=== PATIENT | female | born 1960 | race Caucasian/White ===

== ENCOUNTER 2022-05-20 14:13 | Outpatient (CLI) | payer OTHER, SELFPAY ==
[2022-05-20 14:44] LABS: SARS-CoV-2 Ag Positive (Negative)
== END 2022-05-20 14:14 | disposition home or self-care (01) ==
LOC: CHSLAB 14:16
PROVIDERS: PCP Internal Medicine; Visit Provider Nurse Practitioner Family
DX: U07.1 COVID-19 (principal); J06.9 Acute upper respiratory infection, unspecified
CPT/HCPCS: 87426; C9803

== ENCOUNTER 2023-05-17 12:11 | Emergency (ER) | payer OTHER, SELFPAY ==
[2023-05-17] VITALS (21 sets, daily range): BP systolic 161–188; BP diastolic 68–117; PULSE 75–123; RESP 12–26; TEMP 36.9; O2SAT 92–98
--- NOTE | 2023-05-17 12:24 | ED.GENADULT ---
HPI - General Adult General Chief complaint: Arrhythmia/Palpitations Stated complaint: chest discomfort Time Seen by Provider: 05/17/23 12:13 History of Present Illness HPI narrative: 62yo woman presents with 1-2 weeks of feeling like she as a UTI, with dysuria, increased frequency and urgency, and left low back pain that is cramping, achey, and intermittent. No fever, but occasionally chilled, and feels palpitations with a heart rate in the 120-130 range. . No nausea or vomiting. Related Data Allergies Allergy/AdvReac Type Severity Reaction Status Date / Time No Known Allergies Allergy Verified 05/17/23 12:18 Review of Systems Review of Systems: All systems reviewed & are unremarkable except as noted in HPI and below Constitutional: Constitutional: Reports chills and Denies fever(s) ENT: Denies dysphagia Cardiovascular: Cardiovascular: Denies chest pain Respiratory: Respiratory: Denies dyspnea Gastrointestinal: Gastrointestinal: Denies abdominal pain Exam Const: General: healthy appearing and no acute distress Nutritional Appearance: well nourished Orientation/consciousness: patient oriented x3 HENMT: Head: normal to inspection Eyes: Conjunctivae: conjunctivae normal Resp: Effort & Inspection: normal respiratory effort and not labored Cardio: Rate: regular rate Rhythm: regular rhythm GI: Inspection: non-distended GI Palp: Yes Soft to palpation and No Tenderness to palpation present (GI) Skin: General skin exam: normal color, no jaundice and no pallor Extrem: General: no clubbing, cyanosis or edema Course Vital Signs Vital signs: Vital Signs Pulse Rate 121 H 05/17/23 12:10 Temperature 36.9 C 05/17/23 12:17 Pulse Rate 122 H 05/17/23 12:17 Respiratory Rate 20 05/17/23 12:17 Blood Pressure 178/117 H 05/17/23 12:17 Pulse Oximetry 98 05/17/23 12:17 Oxygen Delivery Room Air 05/17/23 12:17 Medical Decision Making [facility] Narrative Medical decision making narrative: lower urinary tract symptoms, palpitations, sinus tachycardia DDx likely acute cystitis or other occult infection or viral syndrome, also consider dehydration, renal colic, anxiety. No evidence of myocardial ischemia or other injury. Vital Signs Vital Signs: Vital Signs Pulse Rate 121 H 05/17/23 12:10 Temperature 36.9 C 05/17/23 12:17 Pulse Rate 122 H 05/17/23 12:17 Respiratory Rate 20 05/17/23 12:17 Blood Pressure 178/117 H 05/17/23 12:17 Pulse Oximetry 98 05/17/23 12:17 Oxygen Delivery Room Air 05/17/23 12:17 Discharge Plan Discharge Clinical Impression: Dysuria, Regular sinus tachycardia Patient Disposition: Home, Self-Care Condition: Improved Instructions: Antibiotic Form Additional Instructions: Your symptoms are highly suggestive of a urinary tract infection, though your urinalysis today was quite clear. Complete the prescribed course of antibiotics for the full duration to eliminate any possibility of a persistent bladder infection. As for your heart rate, there was no evidence of any heart illness or injury, fever, or dehydration on your exam or labwork. After IV fluids and Tylenol, however, the heart rate did slow to a normal range. This is further evidence that we should treat with antibiotics despite the urine appearing clear. Prescriptions: New cephalexin 500 mg capsule 500 mg PO TIDWMEAL Qty: 21 0RF Follow-up/Referrals: Dion Cook MD [Primary Care Provider] - Time of Disposition: 14:05
[2023-05-17 12:31] LABS: Basophils Absolute Auto 0.03 K/mm3 (0.00-0.10); Basophils Percent Auto 0.4 % (0.0-1.0); Eosinophils Absolute Auto 0.04 K/mm3 (0.02-0.50); Eosinophils Percent Auto 0.5 % (1.0-6.0); Hematocrit 41.7 % (35.0-49.0); Immature Granulocyte Absolute 0.02 K/mm3 (0.00-0.00); Immature Granulocyte Percent A 0.2 % (0.0-0.0); Lymphocytes Absolute Auto 2.36 K/mm3 (1.10-4.50); Lymphocytes Percent Auto 28.6 % (18.0-42.0); Mean Corpuscular HGB Conc 33.6 g/dL (32.0-36.0); Mean Corpuscular Hemoglobin 29.1 pg (27.0-31.0); Mean Corpuscular Volume 86.7 fL (78.0-102.0); Mean Platelet Volume 9.1 fl (9.2-11.8); Monocytes Absolute Auto 0.67 K/mm3 (0.10-0.90); Monocytes Percent Auto 8.1 % (2.0-11.0); Neutrophils Absolute Auto 5.1 K/mm3 (1.7-7.2); Neutrophils Percent Auto 62.2 % (50.0-70.0); Platelet Count Result 293 K/mm3 (150-420); Red Blood Count 4.81 M/mm3 (4.20-5.40); White Blood Count 8.3 K/mm3 (4.8-10.8)
--- NOTE | 2023-05-17 12:31 | ECG_ITS ---
Measurements Intervals [place] Rate: 106 P: 43 WI: 149 QRS: 5 QRSD: 88 T: 22 QT: 325 QTc: 433 Interpretive Statements SINUS TACHYCARDIA BORDERLINE ECG NO PREVIOUS ECG AVAILABLE FOR COMPARISON Electronically Signed On 05-17-2023 18:17:56 [employer] MACHINE by Lorenzo Nash M.D.
[2023-05-17] MEDS: KETOROLAC 15 MG/ML VIAL (*BKC) IV PUSH (12:36)
[2023-05-17] MEDS: SODIUM CHLORIDE 0.9% IV 1,000 ML 999 ML IV CONT (12:37)
[2023-05-17] MEDS: ACETAMINOPHEN 500 MG TABLET 1000 MG PO (12:37)
--- NOTE | 2023-05-17 12:43 | PC.NURSE ---
IS AT BEDSIDE. PT DENIES ANY NEEDS OR COMPLAINTS. IVF INFUSING ORDERED WITHOUT DIFFICULTY. NAD NOTED. WILL CONTINUE TO MONITOR.
[2023-05-17 12:46] LABS: Alanine Aminotransferase 19 U/L (14-59); Albumin Level 3.2 g/dL (3.4-5.0); Alkaline Phosphatase 92 U/L (46-116); Anion Gap 8 mmol/L (8-16); Aspartate Amino Transferase 15 U/L (15-37); Bilirubin,Total 0.9 mg/dL (0.00-1.00); Blood Urea Nitrogen 11 mg/dL (7-18); Calcium 8.8 mg/dL (8.5-10.1); Carbon Dioxide 28 mmol/L (21-32); Chloride 103 mmol/L (98-108); Estimated Glomerular Filt Rate > 60; Glucose 123 mg/dL (70-99); Osmolality Calculated 288 mOsm/kg (285-295); Potassium 3.7 mmol/L (3.5-5.1); Sodium 139 mmol/L (136-145); Total Protein 7.5 g/dL (6.4-8.2)
[2023-05-17 12:59] LABS: Troponin I 7.9 ng/L (0.00-60.4)
[2023-05-17 13:42] LABS: Appearance Urine Clear (Clear); Bilirubin Urine Negative (Negative); Blood Urine Trace-Intact (Negative); Color Urine Light Yellow (Yellow); Glucose Urine UA Negative (Negative); Ketones Urine Negative (Negative); Leukocyte Esterase Ur Trace LEU/UL (Negative); Nitrate Urine Negative (Negative); Protein Urine Negative (Negative); Urobilinogen Urine 0.2 mg/dL (0.2-1.0)
[2023-05-17 13:44] LABS: Add Urine Microscopic? YES
[2023-05-17 13:45] LABS: Bacteria Urine Trace /hpf; RBC Urine 0-2 /hpf (0-2); Squamous Epithelial Cell Urine Few /hpf (Few); WBC Urine 0-3 /hpf (0-3)
--- NOTE | 2023-05-17 13:54 | PC.NURSE ---
PT IS SITTING ON STRETCHER TALKING WITH AT THIS TIME. PT IS AWAITING ERP DECISION. WILL CONTINUE TO MONITOR.
== END 2023-05-17 14:15 | disposition home or self-care (01) ==
PROVIDERS: Emergency Provider Emergency Medicine; PCP Internal Medicine
DX: R30.0 Dysuria (principal); R00.0 Tachycardia, unspecified
CPT/HCPCS: 36415; 80053; 81001; 84484; 85025; 93005; 96361; 96374; 99284; J1885; J7030

== ENCOUNTER 2023-05-22 23:35 | Emergency (ER) | payer OTHER, SELFPAY ==
[2023-05-22 23:35] VITALS: BP 190/97; PULSE 73; PULSE 80; RESP 18; TEMP 36.6; O2SAT 99
[2023-05-22 23:48] VITALS: PULSE 73; RESP 12; O2SAT 98
[2023-05-23] VITALS: PULSE 75; RESP 16; O2SAT 99
[2023-05-23 00:01] VITALS: BP 180/85; PULSE 76; RESP 19; O2SAT 96
[2023-05-23] MEDS: cloNIDine HCL 0.2 MG TABLET PO (00:05)
[2023-05-23] MEDS: lisinopriL 10 MG TABLET PO (00:07)
[2023-05-23 00:31] VITALS: BP 170/74; PULSE 72; RESP 19; O2SAT 96
[2023-05-23 01:03] VITALS: BP 160/82; PULSE 78; RESP 20; O2SAT 98
--- NOTE | 2023-05-23 01:14 | ED.ARRPALP ---
HPI - Arrhythmia/Palpitations General Chief Complaint: Arrhythmia/Palpitations Stated Complaint: HYPERTENSION Time Seen by Provider: 05/23/23 00:00 History of Present Illness HPI narrative: Patient is a 60-year-old female with significant past medical history presents today for hypertension. Patient had blood pressures as high as 190/100 at home. She states that she feels kind of weird with a blood pressure that high. He has never taken blood pressure medicine in the past before. She has a appointment with her primary care physician this Wednesday. She says that she could not wait because her blood pressure was so high. It was 190/97 when she 1st came into the ER today. Onset (ago): day(s) Duration: constant Severity: mild Associated symptoms: denies other symptoms Related Data Allergies Allergy/AdvReac Type Severity Reaction Status Date / Time No Known Allergies Allergy Verified 05/17/23 12:18 Review of Systems Review of Systems: All systems reviewed & are unremarkable except as noted in HPI and below Constitutional: Constitutional: Reports as per HPI Eyes: Eyes: Reports no additional eye complaints ENT: Reports system reviewed and no additional complaints, except as documented Cardiovascular: Cardiovascular: Reports no additional cardiovascular complaints Respiratory: Respiratory: Reports no additional respiratory complaints Gastrointestinal: Gastrointestinal: Reports no additional gastrointestinal complaints Genitourinary: Genitourinary: Reports no additional female genitourinary complaints Musculoskeletal: Musculoskeletal: Reports no additional musculoskeletal complaints Integumentary/Breasts: Skin/Breast: Reports system reviewed and no additional complaints, except as docu Neurologic: Reports system reviewed and no additional complaints, except as documented Psychiatric: Psychiatric: Reports no additional psychiatric complaints Endocrine: Endocrine: Reports no additional endocrine complaints Hematologic/Lymphatic: Hematologic/Lymphatic: Reports no additional hematologic/lymphatic complaints Allergic/Immunologic: Allergic/Immunologic: Reports no additional allergic/immunologic complaints Exam Const: General: healthy appearing Nutritional Appearance: well nourished Orientation/consciousness: patient oriented x3 HENMT: Head: normal to inspection Ears: external ears normal Face/Nose/Sinus: Normal external nose present Face and sinus: normal facial exam Eyes: Conjunctivae: conjunctivae normal Pupils: Equal, round and reactive pupils present EOM: EOMs intact bilaterally Neck: Neck: normal visual inspection Chest: Chest palpation & inspection: normal inspection of the chest Resp: Effort & Inspection: normal respiratory effort Auscultation: clear to auscultation bilaterally Cardio: Rate: regular rate Rhythm: regular rhythm GI: GI Palp: Yes Soft to palpation Back/Spine/Pelvis: Back: no CVA tenderness Skin: General skin exam: normal color Rashes: no rashes Neuro: General: patient oriented x3 Cranial nerves: Yes Nystagmus not present Extrem: General: normal to inspection Psych: Mental Status: mental status grossly normal Course Vital Signs Vital signs: Vital Signs Temperature 97.8 F 05/22/23 23:35 Pulse Rate 73 05/22/23 23:35 Respiratory Rate 18 05/22/23 23:35 Blood Pressure 190/97 H 05/22/23 23:35 Pulse Oximetry 99 05/22/23 23:35 Oxygen Delivery Room Air 05/22/23 23:35 Temperature 97.8 F 05/22/23 23:35 Pulse Rate 78 05/23/23 01:03 Respiratory Rate 20 05/23/23 01:03 Blood Pressure 160/82 H 05/23/23 01:03 Pulse Oximetry 98 05/23/23 01:03 Oxygen Delivery Room Air 05/23/23 01:03 MDM - Arrhythmia/Palpitations MDM Narrative Medical decision making narrative: low complexity Differential Diagnosis Differential diagnosis: Likely other (hypertension) Medical Records Attestation: I reviewed the patient's medical records. Discharge
[2023-05-23 01:24] VITALS: BP 160/86; BP 168/82; PULSE 82; RESP 18; O2SAT 98
== END 2023-05-23 01:24 | disposition home or self-care (01) ==
PROVIDERS: Emergency Provider Family Medicine; PCP Internal Medicine
DX: I10 Essential (primary) hypertension (principal)
CPT/HCPCS: 99284; A9270

== ENCOUNTER 2023-07-22 09:56 | Outpatient (CLI) | payer OTHER, SELFPAY ==
--- NOTE | 2023-08-24 08:49 | WPDHOLTEREM ---
Holter/Event Monitor Holter/Event Monitor Date of procedure: 07/22/23 Holter/Event Procedure: Event Monitor Indications: Palpitations Conclusion: 1. 18 days event monitor between 07/22/23-08/20/23. There are 25 available transmissions for analysis. 2. Underlying rhythm is sinus rhythm. HR range 50-120 bpm; average 75 bpm. 3. No premature supraventricular complexes. No supraventricular tachycardia. 4. There are occasional premature ventricular complexes with total burden of 1%. No ventricular tachycardia. 5. No significant pauses greater than 2 seconds. 6. Patient reports 24 episodes of symptoms of heart racing, and symptoms other than listed which demonstrate sinus rhythm, HR range 65-111 bpm with 10 episodes with PVC's.
== END 2023-07-22 09:57 | disposition home or self-care (01) ==
LOC: CHSCARD 09:59
PROVIDERS: PCP Internal Medicine; Visit Provider Internal Medicine
DX: R00.2 Palpitations (principal); I10 Essential (primary) hypertension
CPT/HCPCS: 93270

== ENCOUNTER 2023-08-12 12:10 | Outpatient (CLI) | payer OTHER, SELFPAY ==
[2023-08-12 14:02] LABS: Alanine Aminotransferase 27 U/L (14-59); Albumin Level 3.6 g/dL (3.4-5.0); Alkaline Phosphatase 86 U/L (46-116); Anion Gap 7 mmol/L (4-12); Aspartate Amino Transferase 16 U/L (15-37); Bilirubin,Total 0.9 mg/dL (0.00-1.00); Blood Urea Nitrogen 10 mg/dL (7-18); Calcium 9.5 mg/dL (8.5-10.1); Carbon Dioxide 31 mmol/L (21-32); Chloride 101 mmol/L (98-108); Estimated Glomerular Filt Rate > 60; Free T3 2.95 pg/mL (2.18-3.98); Glucose 119 mg/dL (70-99); NT Pro B Type Natriuretic Pept 130 pg/mL (0-125); Osmolality Calculated 288 mOsm/kg (285-295); Potassium 4.2 mmol/L (3.5-5.1); Sodium 139 mmol/L (136-145); Thyroid Stimulating Hormone 1.44 uIU/mL (0.36-3.74); Total Protein 7.3 g/dL (6.4-8.2)
== END 2023-08-12 12:11 | disposition home or self-care (01) ==
LOC: CHSLAB 12:13
PROVIDERS: PCP Internal Medicine; Visit Provider Internal Medicine
DX: R00.2 Palpitations (principal); I10 Essential (primary) hypertension; F41.9 Anxiety disorder, unspecified
CPT/HCPCS: 36415; 80053; 83880; 84439; 84443; 84481

== ENCOUNTER 2023-08-25 09:37 | Outpatient (CLI) | payer OTHER, SELFPAY ==
--- NOTE | 2023-08-27 20:03 | WPDHOMESLEEP ---
Sleep Study - Home Unattended Date of Study: 08/25/23 Ordering Provider: Dion Cook MD Interpreting Provider: Sidra Gonzales MD Home Sleep Study Type: Watch PAT Height: 1.57 m Weight: 77.111 kg Body Mass Index: 31.1 Neck Circumference (inches): 13 [place]: 10 Reason for Sleep Study Increased episodes of nocturia with tachycardia at night Sleep History Eloisa Huitron is a 63-year-old woman who has had nocturia for years. She is usually had awakenings between 3:00 a.m. and 7:00 a.m. to urinate every hour. She attributed it to getting older but in April of 2023 she started to wake in order to urinate but also notice her heart racing between 120 and 140 beats per minute. She was placed on blood pressure medication but continues to have these problems. She rarely awakens from sleep short of breath. She rarely wakes at night with heartburn, belching or coughing.??She rarely snores, never snores loudly enough that others complain. She rarely has trouble sleeping when she has a cold. She never wakes up gasping for breath during the night. She rarely has breathing problems at night. She occasionally sweats excessively at night. She frequently notices her heart pounding or beating irregularly during the night. She occasionally falls asleep during the day. She rarely falls asleep involuntarily, never falls asleep while driving. She never experiences loss of muscle tone with strong emotion. She rarely feels paralyzed on waking or falling asleep. She occasionally experiences vivid dreams upon waking or falling asleep. She recently started feel afraid to go to sleep. She rarely has nightmares. She rarely recalls her dreams. She rarely has thoughts racing through her mind. She rarely feels sad or depressed. She frequently feels anxiety. She occasionally notices parts of her body jerk. She never kicks during the night. She occasionally feels crawling or aching feelings in her legs. She occasionally feels leg pain at night, more so recently. She rarely has morning jaw pain, and never grinds her teeth at night. She occasionally feels bothered by pain during the day, is occasionally awakened by pain during the night. She frequently wakes up feeling stiff in the morning, occasionally wakes feeling sore or achy in the morning. She occasionally awakens with pain in her neck, spine, or joints. She has intentionally lost 10 lb in the last year. She has gastroesophageal reflux which is much better recently. Normal bedtime is 11:00 p.m. to 12 midnight, falling asleep while watching TV, gets in bed about 30 minutes later, waking 5 times at nigh on average to go to the bathroom and get cold water to drink. Sometimes her palpitations cause her to wake at night. She wakes around 6:00 a.m.. On weekends bedtime is later 1:00 a.m. and she wakes at 7:00 a.m.. On average she gets 6 hours of sleep at night. She generally does not take naps in the afternoon or evening but a short nap lasting 10-15 minutes may be refreshing. She feels better in the morning and afternoon compared to later in the day. She noticed that sleeping in a recliner reduced her nighttime tachycardia. Habits:??Tobacco: Never smoker Caffeine: None Alcohol: None Recreational substances: None PMF Past Medical History Medical History (Updated 08/30/23 @ 09:51 by Sidra Gonzales MD) Asthma Hypertension Tachycardia Surgical History Surgical History (Updated 08/30/23 @ 09:52 by Sidra Gonzales MD) S/P tonsillectomy Medications Home Medications Medication Instructions Recorded Confirmed Type cephalexin 500 mg capsule 500 mg PO TIDWMEAL #21 caps 05/17/23 05/22/23 Rx lisinopril 10 mg tablet 10 mg PO DAILY #30 tabs 05/23/23 Rx Medications: Hadn written note includes: Aspirin 81 mg a day Verapamil ER 120 mg a day Magnesium 250 mg daily Vitamin-C Advair 250/50 p.r.n. asthma Albuterol HFA p.r.n. asthma Sleep Proced
[2023-08-30 09:58] VITALS: BMI 31.1
== END 2023-08-26 07:00 | disposition home or self-care (01) ==
LOC: ANHCSM 09:38
PROVIDERS: PCP Internal Medicine; Visit Provider Internal Medicine
DX: G47.30 Sleep apnea, unspecified (principal); G47.10 Hypersomnia, unspecified
CPT/HCPCS: 95800

== ENCOUNTER 2023-09-16 13:34 | Outpatient (CLI) | payer OTHER, SELFPAY ==
--- NOTE | ~2023-09-16 | MM_ITS ---
EXAMINATION: MM screening job BI w josr HISTORY: Screening TECHNIQUE: Craniocaudal and mediolateral oblique 3-D tomosynthesis images were obtained and synthetic 2-D images were generated. CAD analysis was submitted and interpreted. COMPARISON: No prior mammogram is available for comparison at this institution. BREAST PARENCHYMAL COMPOSITION: Not dense: There are scattered areas of fibroglandular density. FINDINGS: There is a small mass in the lower outer quadrant of the right breast anteriorly. The left breast is unremarkable without suspicious mass, calcification or architectural distortion to suggest malignancy. IMPRESSION: 1. Small right breast mass. 2. Additional mammographic views and possible breast ultrasound are recommended. BI-RADS Category 0: Incomplete: Needs additional imaging evaluation. Reviewed, dictated and finalized at location B. IMPRESSION: 1. Small right breast mass. 2. Additional mammographic views and possible breast ultrasound are recommended . BI-RADS Category 0: Incomplete: Needs additional imaging evaluation.
--- NOTE | 2023-09-16 13:44 | ECHO_ITS ---
Patient Info Name: Eloisa Huitron Age: 63 years : 1960 Gender: Female Ht: 62 in Wt: 161 lbs BSA: 1.81 m2 HR: 80 bpm BP: 154 / 81 mmHg Technical Quality: Good Exam Date: 09/16/2023 1:37 PM Exam Location: Echo Lab Patient Status: Outpatient Admit Date: 09/16/2023 Staff Ordering Physician: Leni Babcock N Instrument Assembler: Ari Mejia RDCS Attending Provider: Leni Babcock Referring Physician: Sadiq GRANADOS; Exam Type: CA echo doppler color flow Study Info Indications - palpitations Complete two-dimensional, color flow and Doppler transthoracic echocardiogram is performed. Summary 1. Complete two-dimensional, color flow and Doppler transthoracic echocardiogram is performed. 2. Left ventricular chamber dimension is normal. 3. Left ventricular systolic function is normal, estimated at 50-55%. 4. The left ventricular diastolic function is normal. 5. E/e' 5 is not elevated. 6. Left atrial chamber dimension is mildly enlarged. 7. There is trace mitral valve regurgitation. 8. There is trace tricuspid valve regurgitation. 9. No pulmonary hypertension, estimated pulmonary arterial systolic pressure is 29 mmHg. Left Ventricle E/e' 5 is not elevated. Left ventricular chamber dimension is normal. Left ventricular systolic function is normal, estimated at 50-55%. The left ventricular diastolic function is normal. Right Ventricle Right ventricular systolic function is normal and with normal TAPSE 1.9 cm. Right ventricular chamber dimension is normal. Left Atria Left atrial chamber dimension is mildly enlarged. Right Atria Right atrial chamber dimension is normal. Aortic Valve The aortic valve is trileaflet. There is no aortic valve stenosis. There is no aortic valve regurgitation. Pulmonic Valve There is no pulmonic regurgitation. Mitral Valve There is no mitral valve stenosis. There is trace mitral valve regurgitation. Tricuspid Valve There is trace tricuspid valve regurgitation. No pulmonary hypertension, estimated pulmonary arterial systolic pressure is 29 mmHg. Pericardium/Pleural There is no pericardial effusion. Inferior Vena Cava Normal inferior vena cava with >50% collapse upon inspiration consistent with normal right atrial pressure, 5 mmHg. Aorta The aortic root size at the sinus of Valsalva is normal. Left Ventricular Outflow Tract Name Value Normal LVOT 2D LVOT Diameter 2.1 cm LVOT Doppler LVOT Peak Velocity 96 cm/s LVOT Peak Gradient 4 mmHg LVOT Mean Gradient 2 mmHg LVOT VTI 21 cm LVOT VTI/AV VTI Ratio 0.7 LVOT Stroke Volume 70 ml Pulmonic Valve Name Value Normal PV Doppler PV Peak Velocity 98 cm/s PV Peak Gradient 4 mmHg Mitral Valve
== END 2023-09-16 13:35 | disposition home or self-care (01) ==
LOC: CHSIMG 13:36
PROVIDERS: PCP Internal Medicine
DX: Z12.31 Encounter for screening mammogram for malignant neoplasm of breast (principal); R00.2 Palpitations; R93.1 Abnormal findings on diagnostic imaging of heart and coronary circulation; R92.8 Other abnormal and inconclusive findings on diagnostic imaging of breast
CPT/HCPCS: 77063; 77067; 93306

== ENCOUNTER 2023-09-24 08:36 | Outpatient (CLI) | payer OTHER, SELFPAY ==
--- NOTE | ~2023-09-24 | MMUS_ITS ---
EXAMINATION: MM diagnostic job RT w josr, US breast RT limited HISTORY: Right breast mass TECHNIQUE: Additional 3-D tomosynthesis spot compression images of the right breast were performed an d synthetic 2-D images were generated. CAD analysis was submitted and interpreted. High resolution li mited right breast ultrasound was performed. COMPARISON: 09/16/2023 FINDINGS: MAMMOGRAPHIC FINDINGS: There are scattered areas of fibroglandular density. Spot compression views demonstrate a persistent 4 mm dense ovoid mass at the upper, outer right breas t. There is also probable small benign lymph node of the more posterior upper, outer right breast. No suspicious microcalcifications. ULTRASOUND: At the 8:00 position right breast, 4 cm from the nipple, there is a 4 x 4 by 3 mm markedly hypoechoic mass with posterior shadowing and irregular borders. Lesion is taller than wide. At the 10:00 position right breast, 6 cm from the nipple, there is a 4 mm reniform benign lymph node with fatty hilum. IMPRESSION: 4 mm suspicious mass at the 8:00 position right breast, 4 cm from nipple, as detailed above. Ultraso und-guided biopsy is recommended. BI-RADS category 5, highly suggestive of malignancy. Reviewed, dictated and finalized at location M. IMPRESSION: 4 mm suspicious mass at the 8:00 position right breast, 4 cm from nipple, as d etailed above. Ultrasound-guided biopsy is recommended. BI-RADS category 5, highly suggestive of malignancy.
== END 2023-09-24 08:37 | disposition home or self-care (01) ==
LOC: CHSIMG 08:41
PROVIDERS: PCP Internal Medicine
DX: N63.13 Unspecified lump in the right breast, lower outer quadrant (principal); R92.8 Other abnormal and inconclusive findings on diagnostic imaging of breast
CPT/HCPCS: 76642; 77061; 77065; G0279

== ENCOUNTER 2024-04-08 19:43 | Outpatient (CLI) | payer OTHER, SELFPAY ==
--- NOTE | 2024-04-21 19:13 | P.SLEEP_ITS ---
Sleep Study Date of Study: 04/08/24 Ordering Provider: Dion Cook MD Interpreting Physician: Sidra Gonzales MD Sleep Study Type: Polysomnogram Height: 1.52 m Weight: 77.111 kg Body Mass Index: 33.2 Neck Circumference (inches): 13 [place]: 16 Reason for Sleep Study Hypersomnolence * 08/25/2023 home sleep test using WatchPat was negative for sleep disordered breathing, apnea-hypopnea index is 2.3, lowest saturation 88; she returns for additional testing Sleep History Eloisa Huitron is a 63-year-old woman who had a home sleep test July 2023 for hypersomnolence and nocturia for years. Her sleep questionnaire from 2023 was used for this sleep history. She is usually has awakenings between 3:00 a.m. and 7:00 a.m. to urinate every hour. She attributed it to getting older but in April of 2023 she started to wake in order to urinate but also notice her heart racing between 120 and 140 beats per minute. She was placed on blood pressure medication but continues to have these problems. She rarely awakens f rom sleep short of breath. She rarely wakes at night with heartburn, belching or coughing.??She rarely snores, never snores loudly enough that others complain. She rarely has trouble sleeping when she has a cold. She never wakes up gasping for breath during the night. She rarely has breathing problems at night. She occasionally sweats excessively at night. She frequently notices her heart pounding or beating irregularly during the night. She occasionally falls asleep during the day. She rarely falls asleep involuntarily, never falls asleep while driving. She never experiences loss of muscle tone with strong emotion. She rarely feels paralyzed on waking or falling asleep. She occasionally experiences vivid dreams upon waking or falling asleep. She recently started feel afraid to go to sleep. She rarely has nightmares. She rarely recalls her dreams. She rarely has thoughts racing through her mind. She rarely feels sad or depressed. She frequently feels anxiety. She occasionally notices parts of her body jerk. She never kicks during the night. She occasionally feels crawling or aching feelings in her legs. She occasionally feels leg pain at night, more so recently. She rarely has morning jaw pain, and never grinds her teeth at night. She occasionally feels bothered by pain during the day, is occasionally awakened by pain during the night. She frequently wakes up feeling stiff in the morning, occasionally wakes feeling sore or achy in the morning. She occasionally awakens with pain in her neck, spine, or joints. She has intentionally lost 10 lb in the last year. She has gastroesophageal reflux which is much better recently. Normal bedtime is 11:00 p.m. to 12 midnight, falling asleep while watching TV, gets in bed about 30 minutes later, waking 5 times at nigh on average to go to the bathroom and get cold water to drink. Sometimes her palpitations cause her to wake at night. She wakes around 6:00 a.m.. On weekends bedtime is later 1:00 a.m. and she wakes at 7:00 a.m.. On average she gets 6 hours of sleep at night. She generally does not take naps in the afternoon or evening but a short nap lasting 10-15 minutes may be refreshing. She feels better in the morning and afternoon compared to later in the day. She noticed that sleeping in a recliner reduced her nighttime tachycardia. Habits:??Tobacco: Never smoker Caffeine: None Alcohol: None Recreational substances: None PMFSH Past Medical History Medical History (Updated 05/20/24 @ 15:28 by Sidra Gonzales MD) Tachycardia Asthma Hypertension Surgical History Surgical History (Updated 08/30/23 @ 09:52 by Sidra Gonzales MD) S/P tonsillectomy Medications Home Medications ?Medication ?Instructions ?Recorded ?Confirmed ?Type cephalexin 500 mg capsule 500 mg PO TIDWMEAL #21 caps 05/17/23 05/22/23 Rx lisinopril 10 mg tablet 10 mg PO DAILY #30 tabs 05/23/23 Rx Sleep Procedure A full night polysomnogram using the TeamSupport multi-channel system recorded the standard physiologic parameters including EEG, EOG, submentalis EMG, anterior tibialis EMG, EKG, body position, nasal and oral airflow using nasal pressure sensor and thermistor. Respiratory parameters of chest and abdominal movements were recorded with Respiratory Inductance Plethysmography belts. Oxygen saturation was recorded by pulse oximetry. Video monitoring was also performed. Sleep stages, periodic limb movements, and EEG arousals were scored in 30 second epochs according to the criteria of the AASM Scoring Manual. The Apnea-Hypopnea Index was calculated using CMS guidelines for definition of hypopnea while scoring respiratory events. Sleep Architecture The total recording time was 427.7 minutes. The total sleep time was 234.5 minutes. Sleep latency was 37.5 minutes. REM latency was 97.0 minutes. Sleep efficiency was 54.8%. The patient had 18 awakenings for an awakening index of 4.6. Wake after sleep onset time was 156.0 minutes. The patient spent 22.0 minutes, 9.4% of total sleep time in Stage N1. The patient spent 95.0 minutes, 40.5% in Stage N2. The patient spent 79.5 minutes, 33.9% in Stage N3. The patient spent 38.0 minutes, 16.2% in Stage REM sleep. Respiratory Analysis The patient had 1 hypopnea, no obstructive apneas, no mixed apneas, and 2 central apneas for an overall Apnea Hypopnea Index of 0.8. The REM Apnea Hypopnea Index was 4.7. The NREM Apnea Hypopnea Index was 0.3. The patient had a Central Apnea Hypopnea Index of 0.5. There were no- Respiratory Effort Related Arousals/. The Respiratory Disturbance Index is 1.0 events per hour. There was no evidence of Mark-Yip Respirations. Arousals There were 101 total arousals for an arousal index of 25.8. There were 21 spontaneous arousals for an index of 5.4. There were 5 arousals due to respiratory events for an index of 1.3. There were 71 arousals due to periodic limb movements for an index of 18.2. There were 5 arousals due to isolated limb movements for an index of 1.3. Periodic Limb Movements The patient had 17 isolated limb movements with an index of 4.3. The patient had 236 periodic limb movements with an index of 60.4. Patient had a total of 253 limb movements with a total limb movement index of 64.7. Oximetry Data The patient had an average oxygen saturation of 94.4% in sleep with a minimum oxygen saturation of 87% and a maximum oxygen saturation of 98%. The patient had 3 oxygen desaturations that were 4% or greater resulting in an Oxygen Desaturation Index of 0.8. The patient spent 0.2 minutes, 0% of total sleep time with an oxygen saturation below 88%. Snoring Profile Snoring was not noted. Cardiac Profile The EKG showed normal sinus rhythm. the patient had an average pulse rate of 57.9 bpm with a minimum pulse of rate of 47 bpm and a maximum pulse rate of 97 bpm. No arrhythmias noted. EEG Profile Unremarkable, no evidence of seizures. Assessment and Plan Assessment and Plan (1) PLMD (periodic limb movement disorder): Code(s): G47.61 - Periodic limb movement disorder Status: Acute Assessment and Plan: This full night nocturnal polysomnogram on 04/08/2024 shows no sleep disordered breathing. She has increased periodic limb movements, periodic limb movement index is 60.4, and an increased periodic limb movement arousal index 18.2. This is above normal and may contribute to daytime dysfunction due to frequent arousals during sleep. Her sleep history includes occasional crawling feelings and night time leg pain. Ferritin level is indicated to exclude iron deficiency anemia as a contributing factor. Ferritin should be 75 ng/mL or greater. If ferritin is below this, iron supplementation should be given to achieve ferritin of 75 ng/mL. There are nonpharmacologic methods to treat limb movements including daily exercise, stretching calf muscles before bed, avoiding excessive amounts of caffeine and alcohol, vitamin B supplementation, magnesium lotion massaged into legs before bed, and use of a weighted blanket. Pharmacologic therapy is very effective for restless legs syndrome and limb movements during sleep and may include [id number] voltage-gated calcium channel ligands such as gabapentin which is preferable to dopaminergic agents which can have augmentation. Other treatments can include opioids and benzodiazepines. Data The data obtained during this sleep study is adequate for interpretation. Certification This sleep study has been reviewed by a board certified sleep medicine physician.
[2024-05-20 15:38] VITALS: BMI 33.2
== END 2024-04-09 06:38 | disposition home or self-care (01) ==
PROVIDERS: PCP Internal Medicine; Visit Provider Internal Medicine
DX: G47.33 Obstructive sleep apnea (adult) (pediatric) (principal); G47.61 Periodic limb movement disorder
CPT/HCPCS: 95810

== ENCOUNTER 2024-08-25 10:57 | Outpatient (CLI) | payer OTHER, SELFPAY ==
[2024-08-25 11:10] LABS: Basophils Absolute Auto 0.04 K/mm3 (0.00-0.10); Basophils Percent Auto 0.7 % (0.0-1.0); Eosinophils Absolute Auto 0.13 K/mm3 (0.02-0.50); Eosinophils Percent Auto 2.3 % (1.0-6.0); Hematocrit 43.1 % (35.0-49.0); Immature Granulocyte Absolute 0.01 K/mm3 (0.00-0.00); Immature Granulocyte Percent A 0.2 % (0.0-0.0); Lymphocytes Percent Auto 42.9 % (18.0-42.0); Mean Corpuscular HGB Conc 32.5 g/dL (32-36); Mean Corpuscular Hemoglobin 29.4 pg (27.0-31.0); Mean Corpuscular Volume 90.5 fL (78.0-102.0); Mean Platelet Volume 9.5 fl (9.2-11.8); Monocytes Absolute Auto 0.51 K/mm3 (0.10-0.90); Monocytes Percent Auto 9.1 % (2.0-11.0); Neutrophils Percent Auto 44.8 % (50.0-70.0); Platelet Count Result 307 K/mm3 (150-420); Red Blood Count 4.76 M/mm3 (4.20-5.40); Red Cell Distribution Width 12.6 % (11.6-14.4); White Blood Count 5.6 K/mm3 (4.8-10.8)
--- OUTSIDE RECORDS SUMMARY | 2024-08-25 11:10 | XMS_ITS | Clinical Summary ---
Author Organization [facility] Medical Office Building [address] [place] [id number] Care Team Providers Care Commercial Airplane Pilot Name Role Phone Dion Cook MD Primary Care Provider [phone] Deniz Bray MD Unavailable [phone] Dejan Mendez MD Unavailable [phone] Ino Jimenez MD PhD Unavailable Allergies Active Allergy Reactions Criticality Noted Date Comments Latex Swelling Medium 10/15/2023 Medications magnesium oxide (MAG-OX) 250 mg (150.8 mg elemental) tablet Take 1 tablet (250 mg total) by mouth nightly at bedtime. 4 Active coenzyme Q10 10 mg capsule Take 1 capsule (10 mg total) by mouth daily Active polyethylene glycol (MIRALAX) 17 gram/dose bulk powder Take 17 g by mouth nightly Active albuterol HFA (PROVENTIL HFA,VENTOLIN HFA,PROAIR HFA) 90 mcg/actuation inhaler Inhale 2 puffs every 6 (six) hours as needed for wheezing Active fluticasone propion-salmete roL (ADVAIR DISKUS) 100-50 mcg/dose diskus inhaler Inhale 1 puff 2 (two) times a day as needed Rinse mouth with water after use. Do not swallow. Active traMADoL (ULTRAM) 50 mg tablet Take 1 tablet (50 mg total) by mouth every 4 (four) hours as needed for pain 10 tablet 4 Active Additional Information Patient not taking.Reported on 01/10/2024 propranoloL (INDERAL) 80 mg tablet Take 1 tablet (80 mg total) by mouth nightly Active traMADoL (ULTRAM) 50 mg tablet Take 1 tablet (50 mg total) by mouth every 4 (four) hours as needed for pain 10 tablet 4 Active Additional Information Patient not taking.Reported on 01/10/2024 Active Problems Problem Noted Date Diagnosed Date Personal history of radiation therapy 03/08/2024 Malignant neoplasm of lower- outer quadrant of right breast of female, estrogen receptor positive 10/28/2023 Cancer Staging:Clinical stage from 10/28/2023:Stage IA(cT1a, cN0, cM0, G1, ER+, NC+, HER2-) - Signed by Dejan Mendez MD on 10/28/2023 Pathologic stage from 01/10/2024:Stage IA(pT1b, pN0(sn), cM0, G1, ER+, NC+, HER2-) - Signed by Dejan Mendez MD on 01/10/2024 Surgical History Surgery Date Site/Laterality Comments BREAST BIOPSY 10/15/2023 Right TONSILLECTOMY Medical History Medical History Date Comments Breast cancer (HCC) History of tachycardia no episod es recently Hypertension Bladder prolapse, female, acquired Asthma Pneumonia Family History Medical History Relation Name Comments No Known Problems Father Breast cancer Father's Sister Cancer Father's Sister No Known Problems Mother Relation Name Status Comments Father Father's Sister Maternal Grandfather Maternal Grandmother Mother Alive Paternal Grandfather Paternal Grandmother Social History Tobacco Use Types Packs/Day Years Used Date Smoking Tobacco: Never Smokeless Tobacco: Never Tobacco Cessation:Counseling Given: Not Answered AUDIT-C Answer Date Recorded Q1: How often do you have a drink containing alcohol? Never 12/15/2023 Q2: How many drinks containi ng alcohol do you have on a typical day when you are drinking? Patient does not drink Q3: How often do you have si x or more drinks on one occasion? Never 12/15/2023 Personal Safety Answer Date Recorded Have you ever been in or are you currently in a harmful physical or emotional relationship or is someone making you feel afraid or unsafe? Denies 12/15/2023 Comments No Sex and Gender Information Value Date Recorded Sex Assigned at Not on file Legal Sex Female 10:17 AM CDT Gender Identity Not on file Sexual Orientation Not on file Obstetrics History Last Filed Vital Signs Vital Sign Reading Time Taken Comments Blood Pressure 158/92 03/15/2024 1:21 PM DIGITAL SALES REPRESENTATIVE Pulse 59 03/15/2024 1:21 PM DIGITAL SALES REPRESENTATIVE Temperature 36.1 C (97 F) 12/15/2023 9:00 AM CDT Respiratory Rate 18 12/15/2023 9:30 AM CDT Oxygen Saturation 100% 03/15/2024 1:21 PM DIGITAL SALES REPRESENTATIVE Inhaled Oxygen Concentration - - Weight 75.3 kg (166 lb) 03/15/2024 1:21 PM DIGITAL SALES REPRESENTATIVE Height 151.1 cm (4' 11.5) 12/15/2023 6:10 AM CD T Body Mass Index 32.97 12/15/2023 6:10 AM CDT Plan of Treatment Health Maintenance Due Date Last Done Comments Cervical Cancer Screening 1960 Colon Cancer Screening-Colonoscopy 1960 Depression Screening 1960 Hepatitis C Screening 1960 DTaP/Tdap/Td Vaccine (1 - Tdap) 1971 Hepatitis B Screening 1978 Regular Well Visit/Exam 18-64 1978 Pneumococcal vaccine <65 (1 of 2 - PCV) 1979 Zoster Vaccine (1 of 2) 1979 Breast Cancer Screening-Mammogram 09/16/2024 024 Influenza Vaccine (Season Ended) 2024 Medical Devices Implanted Type Area Molding Utility Worker Device Identifier Shelf Expiration Date Model / Serial / Lot [employer] Limited Partnership Marker Biospy Site Top Hat Shape Senomark [id number] - [id number] Implanted:Qty: 1 on 10/15/2023 by Deniz Bray MD at [facility] Right: Breast Hologic Limited Partnership [id number] 07/05/2024 SMARK-GENEVIEVE ERO-2S / / [id number] Insurance [employer] [place] 20ga 5cm Reposition J Curve Wire Centimeter Phil Stabilizer [id number] - [id number] Implanted:Qty: 1 on 11/15/2023 by Pradeep Vazquez MD at [facility] Right: Breast [employer] [id number] 08/04/2028 [id number] / / [id number] Insurance [facility] Advance Directives For more information, please contact: [phone] * Full Code (Latest Code Status on File) Date Activated Date Inactivated Comments 12/15/2023 8:17 AM 12/15/2023 1:56 PM * Full Code Date Activated Date Inactivated Comments 11/15/2023 2:10 PM 11/15/2023 7:46 PM Care Teams Commercial Airplane Pilot Relationship Specialty Start Date End Date Dion Cook MD PCP - General Internal Medicine 10/08/23 Deniz Bray MD [address] [facility] [address] [place] [address] Surgeon General Surgery 10/21/23 Dejan Mendez MD [address] [facility] [address] [place] [address] Radiation Oncologist Radiation Oncology 10/21/23 Ino Jimenez MD PhD [address] [facility] [address] [place] [address] Medical Oncologist/Substance Abuse Clinician Medical Oncology 10/28/23
--- OUTSIDE RECORDS SUMMARY | 2024-08-25 11:10 | XMS_ITS | Referral Summary ---
Author Organization [facility] Medical Office Building [address] [place] [id number] Care Team Providers Care Glass Forming Engineer Name Role Phone Dion Cook MD Primary Care Provider [phone] Deniz Bray MD Unavailable [phone] Dejan Mendez MD Unavailable [phone] Ino Jimenez MD PhD Unavailable Allergies [...] hours as needed for pain 10 tablet Active Additional Information Patient not taking.Reported on 01/10/2024 Active Problems Problem Noted Date Diagnosed Date Personal history of radiation therapy 03/08/2024 Malignant neoplasm of lower- outer quadrant of right breast of female, estrogen receptor positive 10/28/2023 Cancer Staging:Clinical stage from 10/28/2023:Stage IA(cT1a, cN0, cM0, G1, ER+, OR+, HER2-) - Signed by Dejan Mendez MD on 10/28/2023 Pathologic stage from 01/10/2024:Stage IA(pT1b, pN0(sn), cM0, G1, ER+, OR+, HER2-) - Signed by Dejan Mendez MD on 01/10/2024 Social History Tobacco Use Types Packs/Day Years [...] on file Sexual Orientation Not on file Last Filed Vital Signs Vital Sign Reading Time Taken Comments Blood Pressure 158/92 03/15/2024 1:21 PM MIXER LEVER OPERATOR Pulse 59 03/15/2024 1:21 PM MIXER LEVER OPERATOR Temperature 36.1 C (97 F) 12/15/2023 9:00 AM CDT Respiratory Rate 18 12/15/2023 9:30 AM CDT Oxygen Saturation 100% 03/15/2024 1:21 PM MIXER LEVER OPERATOR Inhaled Oxygen Concentration - - Weight 75.3 kg (166 lb) 03/15/2024 1:21 PM MIXER LEVER OPERATOR Height 151.1 cm (4' 11.5) 12/15/2023 6:10 AM CD T Body Mass Index 32.97 12/15/2023 6:10 AM CDT Plan of Treatment Not on file Medical Devices Implanted Type Area Fabrication Engineer Device Identifier Shelf Expiration Date Model / Serial / Lot Hologic Limited Partnership Marker Biospy Site Top Hat Shape Senomark [id number] - [id number] Implanted:Qty: 1 on 10/15/2023 by Deniz Bray MD at [facility] Right: Breast [employer] Partnership [id number] 07/05/2024 SMARK-GENEVIEVE ERO-2S / / [id number] [id number] Team Lead [employer] [place] 20ga 5cm Reposition J Curve Wire Centimeter Phil Stabilizer [id number] - [id number] Implanted:Qty: 1 on 11/15/2023 by Pradeep Vazquez MD at [facility] Right: Breast [employer] [id number] 08/04/2028 [id number] / / [id number] Insurance [facility] Advance Directives For more information, please contact: [phone] * Full Code (Latest Code Status on File) Date Activated Date Inactivated Comments 12/15/2023 8:17 AM 12/15/2023 1:56 PM * Full Code Date Activated Date Inactivated Comments 11/15/2023 2:10 PM 11/15/2023 7:46 PM Care Teams Glass Forming Engineer Relationship Specialty Start Date End Date Dion Cook MD PCP - General Internal Medicine 10/08/23 Deniz Bray MD [facility] [address] [place] [address] Surgeon General Surgery 10/21/23 Dejan Mendez MD [address] [place] [address] [address] [place], [place] [id number] Radiation Oncologist Radiation Oncology 10/21/23 Ino Jimenez MD PhD [address] [facility] [address] [place] [address] Medical Oncologist/Bakery Worker Conveyor Line Medical Oncology 10/28/23
--- OUTSIDE RECORDS SUMMARY | 2024-08-25 11:10 | XMS_ITS | Data Portability ---
Author Organization [facility] Address [address] [place] [address] Care Team Providers Care University Librarian Name Role Phone MARINA SPENCER Primary Care Provider LENI BABCOCK Dining Room Host Unavailable Assessment No assessment recorded. Plan of Treatment Reminders Order Date Submit Date Provider Last Modified By Organization Details Last Modified Time Details Appointments None record ed. Lab bacter ial vagino sis panel, vagina l 2023 [facility], [address] [place] [address] 2, [place], [address], 4 17:09:25 cytolo gy report , thin prep, smear or scrapi ng, cervic al or vagina l 2023 [facility], [address] [place] [address] 2, [place], [address], 4 10:22:54 noninv asive colore ctal cancer DNA + occult blood screen ing, QL, stool 2023 [facility] Orders Only), [address], [address], [place], [address], 4 18:18:30 Referral breast surger y referr al - mammog wild done showed small right breast massAd dition al imagin g ordere d Additi onal imagin g was done on and it showed at 8:00 in the right breast , 4cm from the nipple a 4x4x3m m hypoec hoic mass with dimpling machine operator ior shadow ing and irregu lar border s. Lesion is taller than wider. Suspic ious for malign cassandra. Biopsy is needed . 2023 [facility], [address], [address], [place], [address], 4 11:42:58 gastro entero logist referr al - Cologu jeff done - result s are positi veWill refer to GI for colono scopy 2023 [facility], [address] [facility], [address], [place], [address], 4 17:07:49 urogyn ecolog ist referr al - Slight Cystoc anali noted upon examur inary incont inence at timesP t also has urinar y urgenc y as well. 2023 [facility], [address] [facility], [address], [place], [address], 4 16:01:35 Procedures None record ed. Surgeries None record ed. Imaging US, breast , unilat eral - mammog wild done showed small right breast mass, Mass is in lower outer quadra nt [address] [facility], [address] [place], [address], 4 15:42:52 MAMMO, diagno stic, unilat eral - mammog wild done showed small right breast mass, Mass is in lower outer quadra nt [address] [facility], [address] [place], [address], 4 15:42:52 MAMMO, screen ing, bilate ral [address] [facility] [address] [facility], [place], [address], 11:09:29 Medication Orders None record ed. Patient TargetsNo targets recorded. Patient Instructions Encounter Date Encounter Id Patient Instructions Last Modified By Organization Details Last Modified Time 09/06/2023 [id number] A healthy lifestyle: care instructions Not available 09/06/2023 10:58:33 Your women's health annual exam today was unremarkable. Continue to practice breast self awareness like we discussed. Come back to the office with any breast changes, nipple discharge, change to your menstrual cycle, or with complaints of unusual odorous discharge. Otherwise, come back in 1 year for your next well woman annual exam. Do NOT douche as it disturbs the natural balance of bacteria in the vagina and can cause infection. Avoid scented soaps or lotions. Use a basic unscented soap for only the outer skin around your vagina. Wear cotton underwear, avoid thongs, avoid spandex, leggings and wear panty liners daily. You can try probiotics. Use a condom with EVERY sexual encounter to minimize your risk for sexually transmitted infection and unplanned . 1. Start taking a multivitamin, calcium and vitamin D3 supplements daily to keep your bones healthy. 2. Exercise and keep a healthy diet to minimize risk for stroke, heart attack and osteoporosis. 3. Use a once a day vaginal moisturizer (like Replens) if you have bothersome dryness. If dryness continues to be a problem, make an appointment to see us to discuss other options. Keep taking your multivitamins. Your bones get weaker after menopause, and you need to take your calcium and vitamin D3, which are multivitamins, to make sure your bones stay strong. Regular exercise, like walking, is very good to keep bones healthy. Try exercising for 30 minutes 5 times a week. Try having 2-3 servings of low fat dairy every day. Lubrication can help make penetrative intercourse more comfortable. There are 3 types of lube: Water-based (examples are KY jelly, Astroglide): inexpensive, can buy over the counter, often gets sticky and needs to be reapplied. Oil-based (examples olive oil, coconut oil): inexpensive, can stain sheets, do not use with condoms. Silicone-based (examples Uber Lube, Pjur): more expensive, a little goes a long way, does not have scents or stain sheets. Not available 09/06/2023 10:25:06 09/17/2023 [id number] A healthy lifestyle: care instructions [email or web address] Not available 09/17/2023 13:13:03 Your referral wa s ordered today. It will be processed by our health and safety coordinator. Once it is processed, you should be able to make your appointment. [email or web address] Not available 09/17/2023 13:13:02 09/27/2023 [id number] A healthy lifestyle: care instructions [email or web address] Not available 09/27/2023 12:45:08 Your referral wa s ordered today. It will be processed by our health and safety coordinator. Once it is processed, you should be able to make your appointment. [email or web address] Not available 09/27/2023 12:45:07 Reason for Referral Urogynecologist Referral for Cystocele Slight Cystocele noted upon examurinary incontinence at timesPt also has urinary urgency as well. Referring Physician: Leni Babcock [employer] WOMAN, Encounter Date: 09/06/2023 Skip Load Driver Referral for Screening for malignant neoplasm of colon Cologuard done - results are positiveWill refer to GI for colonoscopy Referring Physician: Leni Babcock [employer] WOMAN, Encounter Date: 09/17/2023 Breast Surgery Referral for Mass of right breast mammogram done 09/16/2023 showed small right breast massAdditional imaging ordered Additional imaging was done on 09/24/2023 and it showed at 8:00 in the right breast, 4cm from the nipple a [id number] hypoechoic mass with posterior shadowing and irregular borders. Lesion is taller than wider. Suspicious for malignancy. Biopsy is needed. Referring Physician: Leni Babcock [employer] WOMAN, Encounter Date: 09/27/2023 Results Created Date Observation Date Name Description Value Unit Range Abnormal Flag Note LastModifiedBy Organization Detail LastModifiedTime 09/06/19 24 09/07/2023 NUSWA B BV AND JALEN DA, DONAVAN atopobium vaginae LOW - 0 score Not Available [facility] ([facility]) [address] [place], [address], 09/07/2023 17:09:25 09/06/19 24 09/07/2023 NUSWA B BV AND JALNE DA, DONAVAN bvab 2 LOW - 0 score Not Available [facility] ([facility]) [address] [facility], [place], [address], 09/07/2023 17:09:25 09/06/19 24 09/07/2023 NUSWA B BV AND JALEN DA, DONAVAN megasphaera 1 LOW - 0 score Calcu late total score by rigo ellis the 3 indiv idual bacte rial vagin osis (BV) marke r score s toget her. Total score is inter prete d as follo ws: Total score 0-1: Indic ates the absen ce of BV. Total score 2: Indet ermin ate for BV. Addit ional clini will data shoul d be evalu ated to estab rodrigo a diagn osis. Total score 3-6: Indic ates the prese nce of BV. Not Available [facility] ([facility]) [address] [facility], [place], [address], 09/07/2023 17:09:25 09/06/19 24 09/07/2023 NUSWA B BV AND JALEN DA, DONAVAN gaye albicans, DONAVAN NEGATI VE negati ve Not Available [facility] ([facility]) [address] [place], [address], 09/07/2023 17:09:25 09/06/19 24 09/07/2023 NUSWA B BV AND JALEN DA, DONAVAN gaye glabrata, DONAVAN NEGATI VE negati ve Not Available [facility] ([facility]) [address] [place], [address], 09/07/2023 17:09:25 09/06/19 24 09/07/2023 IGP, APTIM A HPV, RFX 16/18 ,45 HPV aptima NEGATI VE negati ve This nucle ic acid ampli ficat ion test detec ts fourt een high- risk HPV types (16,1 8,31, 33,35 ,39,4 5,51, 52,56 ,58,5 9,66, 68) witho ut diffe renti ation . Not Available [facility] ([facility]) [address] [facility], [place], [address], 09/09/2023 10:22:54 09/06/19 24 09/09/2023 IGP, APTIM A HPV, RFX 16/18 ,45 diagnosis: COMMEN T NEGAT CODY FOR INTRA EPITH ELIAL LESIO N OR INDIRA RINALDI . THIS SPECI MEN WAS RESCR EENED PART OF OUR QUALI TY CONTR OL PROGR AM. Not Available [facility] ([facility]) [address] [facility], [place], [address], 09/09/2023 10:22:54 09/06/19 24 09/09/2023 IGP, APTIM A HPV, RFX 16/18 ,45 specimen adequacy: COMMEN T Satis facto ry for evalu ation . Endoc ervic al and/o r squam ous metap lasti c cells (endo cervi will compo nent) are prese nt. Not Available [facility] ([facility]) [address] [facility], [place], [address], 09/09/2023 10:22:54 09/06/19 24 09/09/2023 IGP, APTIM A HPV, RFX 16/18 ,45 clinician provided ICD10: COMMEN T Z01.4 19 N89.8 Not Available [facility] ([facility]) [address] [place], [address], 09/09/2023 10:22:54 09/06/19 24 09/09/2023 IGP, APTIM A HPV, RFX 16/18 ,45 performed by: COMMEN T Loretta sa W Gilke rson, Cytot echno logis t (ASCP ) Not Available [facility] ([facility]) [address] [place], [address], 09/09/2023 10:22:54 09/06/19 24 09/09/2023 IGP, APTIM A HPV, RFX 16/18 ,45 QC reviewed by: KAREN mattson, Cytot echno logis t (ASCP ) Not Available [facility] ([facility]) [address] [place], [address], 09/09/2023 10:22:54 09/06/19 24 09/09/2023 IGP, APTIM A HPV, RFX 16/18 ,45 . . Not Available [facility] ([facility]) [address] [place], [address], 09/09/2023 10:22:54 09/06/19 24 09/09/2023 IGP, APTIM A HPV, RFX 16/18 ,45 note: KAREN Tran The Pap smear is a scree angelica test zara blair to aid in the detec tion of huber ligna nt and malig nant condi tions of the uteri ne cervi x. It is not a diagn ostic proce dure and shoul d not be used as the sole means of detec ting cervi will cance r. Both false -posi tive and false -nega tive repor ts do occur . Not Available [facility] ([facility]) [address] [place], [address], 09/09/2023 10:22:54 09/06/1909/09/2023 IGP, APTIM A HPV, RFX 16/18 ,45 test methodology: KAREN Tran This liqui d based ThinP rep(R ) pap test was scree blair with the use of an image guide dorota systefren m. Not Available [facility] ([facility]) [address] [place], [address], 09/09/2023 10:22:54 09/06/19 24 09/09/2023 IGP, APTIM A HPV, RFX 16/18 ,45 HPV genotype reflex COMMEN T Crite benton not met, HPV Genot ype not perfo rmed. Not Available [facility] ([facility]) [address], [place], [address], 09/09/2023 10:22:54 09/12/19 24 09/12/2023 COLOG UARD cologuard result reportable POSITI VE negati ve abnormal POSIT CODY TEST RESUL T. A posit cody Colog uard resul t shoul d be follo wed with a colon oscop y or visua l exami natio n of the colon . The carmelita l value (refe rence range ) for this assay is negat cody. TEST DESCR IPTIO N: Linganore site algor ithmi c quan sis of stool DNA-b iodawson smith with hemog lobin immun oassa y. Quant itati ve value s of indiv idual bioma rkers are not repor table and are not assoc iated with indiv idual bioma rker resul t refer ence range s. Colog uard is inten ded for color ectal cance r scree angelica of adult s of eithe r sex, 45 years or older , who are at [facility] for color ectal cance r (CRC) . Colog uard has been appro dorene for use by the U.S. FDA. The perfo rmanc e of Colog uard was estab lishe d in a cross secti onal study of [facility] adult s aged 50-84 . Colog uard perfo rmanc e in patie nts ages 45 to 49 years was estim ated by emeterio-rhonda juan quan sis of near- age group s. Colon oscop ies perfo rmed for a posit cody resul t may find as the most clini josefa signi fican t lesio n: color ectal cance r [4.0% ], advan suzi adeno ma (incl uding sessi le gaston cash polyp s great er than or equal to 1cm diame ter) [20%] or non- advan suzi adeno ma [31%] ; or no color ectal neopl marleen [45%] . These estim ates are deriv ed from a prosp ectiv e cross -sect ional hazel dominguez study of 0 indiv idual s at [place] [facility] risk for color ectal cance r who were scree blair with both Colog uard and colon oscop y. (Linda Araujo et al, N Engl J Med 2014; 370(1 4):12 86-12 97.) Colog uard may produ ce a false negat cody or false posit cody resul t (no color ectal cance r or preca ncero us polyp prese nt at colon oscop y follo w up). A negat cody Colog uard test resul t does not guara ntee the absen ce of CRC or advan suzi adeno ma (pre- cance r). The curre nt Colog uard screefren dominguez inter cassie is every 3 years . (Amer ican Cance r Socie ty and U.S. Multi -Soci ety Task Force ). Colog uard perfo rmanc e data in a 0 patie nt pivot al study using colon oscop y as the refer ence metho d can be [facility]es sed [facility] ion: www.e xactl abs.c om/re jey . Addit ional descr iptio n of the Colog uard test proce ss, warni ngs and preca ution s can be found at www.c ologu jeff.c om. Not Available [facility] (Cologuard Orders Only) [address], [place], [address], 09/16/2023 18:18:30 09/17/19 24 09/16/2023 MAMMO , carmele angelica, bilat eral No observ ation record ed. [facility] [address] [facility], [place], [address], 09/17/2023 13:14:10 09/24/19 24 09/24/2023 MAMMO , diagn ostic , unila teral No observ ation record ed. [facility]) [address] [place], [address], 09/27/2023 12:53:30 Result Notes None recorded. Problems No Known Problems Procedures Surgical History Date Name Laterality Status Provider Name and Address Organization Details Recorded Time Date of Last Pap Smear completed LENI BABCOCK NP Attn: Accounting,[address] [place], [address], [facility] 09/06/2023 14:02:12 Removal of tonsils completed LENI BABCOCK NP Attn: Accounting,[address] [place], [address], [facility] 09/06/2023 14:03:29 Imaging Results None recorded. Procedure Notes None recorded. Medical Equipment None Reported. Allergies Allergen ID Allergen Name Allergen Category Reaction Reaction Severity Criticality Documentation Date Start Date Code Code System Note Provider Name and Address Organization Details Recorded Time 552255 latex environme nt,medica tion other Not available Not available 09/06/2023 98037 91 RxNorm Martha Moore MA [facility], [facility] 4 10:13:35 Medications Name Sig Start Date Stop Date Status Note LastModified by Organization Details LastModified Time verapamil ER (SR) 120 mg tablet,exte nded release active Not Available Not Available Not Available aspirin 81 mg tablet,noy yed release active Not Available Not Available Not Available amoxicillin 875 mg tablet TAKE 1 TABLET BY MOUTH EVERY 12 HOURS UNTIL FINISHED 09/05 completed Not Available Not Available Not Available cephalexin 500 mg capsule TAKE 1 CAPSULE BY MOUTH 3 TIMES A DAY WITH MEALS 09/05 completed Not Available Not Available Not Available neomycin-po lymyxin-dex ameth 3.5 mg/mL-10,00 0 unit/mL-0.1 % eye drops SHAKE LIQUID AND INSTILL 1 DROP IN EACH EYE FOUR TIMES DAILY FOR 10 DAYS 09/05 completed Not Available Not Available Not Available lisinopril 10 mg tablet TAKE 1 TABLET BY MOUTH DAILY active Not Available Not Available No t Available magnesium 250 mg (as magnesium oxide) tablet TAKE 1 TABLET BY MOUTH AT BEDTIME active Not Available Not Available No t Available Vitals Date Recorded Body weight Body mass index (BMI) Body height Heart rate Systolic blood pressure Diastolic blood pressure Provider Name and Address Organization Details Last Updated DateTime 4 77813.9 6 g 29.6 kg/m2 157.48 cm 93 /min 158 mm[Hg] 90 mm[Hg] Patricia Moore MA [facility] 10:22:14 Date Recorded Body height Provider Name an d Address Organization Details Last Updated DateTime 09/17/2023 157.48 cm Inder LATHAM Attn: Accounting,[address] [place], [address], [facility] 09/17/2023 13:04:18 Date Recorded Body height Provider Name an d Address Organization Details Last Updated DateTime 09/27/2023 157.48 cm Inder LATHAM Attn: Accounting,[address] [place], [address], [facility] 09/27/2023 12:40:33 Social History Question Answer Notes LastModified by Organizat ion Details LastModified Time Tobacco Smoking Status Never Smoker Patricia Moore MA [facility], [facility] 09/06/2023 10:17:07 What Is Your Level Of Caffeine Consumption? Occasional Information not available 09/06/2023 What Type Of Diet Are You Following? REGULAR Information not available 09/06/2023 Have There Been Any Changes To Your Family Or Social Situation? No Information no t available 09/06/2023 What Was The Date Of Your Most Recent Tobacco Screening? 09/06/2023 Information not available 09/06/2023 How Many Children Do You Have? 2 Information not available 09/06/2023 Do You Have Any Pets? No Information not available 09/06/2023 What Is Your Relationship Status? Information not available 09/06/2023 Do You Use Your Seat Belt Or Car Seat Routinely? Yes Information not available 09/06/2023 Do You Have Smoke And Carbon Monoxide Detectors In Your Home? Yes Information not available 09/06/2023 Are You Passively Exposed To Smoke? No Information no t available 09/06/2023 Has Tobacco Cessation Counseling Been Provided? No Information not available 09/06/2023 Sex: Female Functional Status Question Answer Note LastModified by GuideSparkizat ion Details LastModified Time Do you use any illicit or recreational drugs? No Information not available 09/06/2023 Do you or have you ever used any other forms of tobacco or nicotine? No Information not available 09/06/2023 What is your level of alcohol consumption? None Information not available 09/06/2023 Are you currently employed? No Information not available 09/06/2023 What is your exercise level? Occasional Information not available 09/06/2023 Mental Status Question Answer Note LastModified by Organization D etails LastModified Time Do you feel stressed (tense, restless, nervous, or anxious, or unable to sleep at night)? [id number] Information not available 09/06/2023 Family History Relationship Description Onset Age of this Age Resolved Age Notes LastModified by Organization Details LastModified Time Mother Hypertensive disorder [email or web address] Not available 2023 10:16:05 Father Hypertensive disorder [email or web address] Not available 2023 10:16:10 Medical History Condition Response Other N High Blood Pressure Y Breast Cancer N Thyroid Problems N Kidney or Bladder Problems N GI Problems N Depression N Blood Clots N Lung Disease N Acne N Breast Problem N Eating Disorder N Anemia N Anesthesia Complications N Headaches/Migraines N Anxiety Disorder N Diabetes N Ovarian Cancer N Muscle, Joint, or Bone Problems N Blood Transfusions N Seizures/Epilepsy N Polyps N Infertility N Acid Reflux (GERD) N Cancer N Abuse/Domestic Violence N Asthma N Endometriosis N High Cholesterol N Hepatitis N Liver Disease N Heart Disease N Pre-Eclampsia N Osteoporosis N Gynecological History Statement/Question Response Menses Monthly N Abnormal Pap N If Post Menopausal, Age at Menopause 50 Date of Last Pap Smear 09/06/2023 Current Control Method Menopause Sexually Active? Y Obstetrics History GPAL:G 2 P 2 0 0 2 Type Value Multiple Births 0 Full Term 2 Induced 0 Spontaneous 0 Premature 0 Living 2 Ectopics 0 Total 2 Past Encounters Encounter ID Performer Location Encounter Start Date Encounter Closed Date Diagnosis/Indication Diagnosis SNOMED-CT Code Diagnosis ICD10 Code Diagnosis Note [id number] Antonia Price MD [facility] [address] [place] [address] 09/06/2023 09:41:01 09/07/2023 20:18:59 Gynecologic examination 32136591 Z01.419 Ibm Mainframe Developer exam completedB reast and thyroid WNLDenies any family history of breast, ovarian, pancreatic , endometria l cancer 1. Pap+ HPV cotesting done; pt has no pap history2. STI screening declined.3 . Pt is post menopausal .4. Discussed breast self awareness5 . Mammogram ordered per ACOG guidelines 6. Cologuard ordered for patient.7. Discussed when to return to clinic for /COOK APPRENTICE PASTRY complaints . Screening mammography 24 600629 Z12.31 Unknown when last mammogram was doneOrder placed Menopause 573963073 Z78. 0 pt is post menopausal Discussed vaginal changes, moisturize rs and lubricatio nDiscussed returning to clinic with any vaginal bleedingDi scussed Calcium and Vitamin D supplement ation Overweight 236988240 E66 .3 Vaginal odor 461782222 N 89.8 1. Vaginal swab obtained2. Discussed vaginal hygiene, preventive measures and probiotics . Screening for malignant neoplasm of colon 188970872 Z12.11 No HX of colon cancer in familyColo guard ordered Cystocele 866043932 N81. 10 appears like bladder is prolapsing with bearing down.urina ry incontinen ce at timesPt also has urinary urgency as well. [id number] Antonia Price MD [facility] ([facility]) [address] [place] [address] 09/17/2023 13:02:46 09/20/2023 09:11:30 Mass of right breast 4473177706 3690468 N63.10 mammogram done 09/16/2023 showed small right breast massAdditi onal imaging ordered Screening for malignant neoplasm of colon 431798772 Z12.11 No HX of colon cancer in familyColo guard done - results are positiveWi ll refer to GI for colonoscop y Overweight 628506765 E66 .3 [id number] Antonia Price MD [facility] [address] [place] [address] 09/27/2023 12:38:40 10/01/2023 12:16:33 Mass of right breast 0634746918 0481508 N63.13 mammogram done 09/16/2023 showed small right breast massAdditi onal imaging orderedAdd itional imaging was done on 09/24/2023 and it showed at 8:00 in the right breast, 4cm from the nipple a [id number] hypoechoic mass with posterior shadowing and irregular borders. Lesion is taller than wider. Suspicious for malignancy . Biopsy is needed. Overweight 808363859 E66 .3 Health Concerns Section Related Observation LastModified by Organization Detai ls LastModified Time None Recorded Concern Status LastModified by Organization Details LastModified Time None Recorded Advance Directives Directive None Recorded Payers Encounter Date Sequence Insurance Name Policy Number Policy Perkins Covered Member ID Perkins Member ID Guarantor Name 09/06/2023 1 [facility] [id number] Vinay Huitron [id number] Eloisa Huitron 09/17/2023 1 [facility] [id number] Vinay Huitron [id number] Eloisa Huitron 09/27/2023 1 R [id number] Vinay Rhonda Tomy [id number] Eloisa Huitron Notes Date Note Type Note Provider Name and Address Organization Details Recorded Time 09/06/2023 text/html Eloisa sarabia 63yo with HX of asthma and HTN 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 Reports menopause at age 50. Denies any HRT. Has c/o vaginal odor that comes and goes. Denies any discharge.Has c/o of something feels like it is coming out of the vagina Denies any complaints. Denies any breast changes/pain, fatigue/cold intolerance/hair loss/dry skin. Denies dyspareunia, pelvic pressure or bowel movement changes.Denies SOB/chest pain/dizziness. Denies any fever or chills. Denies any family history of breast, ovarian, endometrial or pancreatic cancer. LMP: age 50Last pap smear: unknownPap due: TodayLast Mammogram: unknownLast Cologuard: never had onePatient is sexually active with a male partner. Patient has had 1 male partner in the past 43 years.Declines STI testing today. LENI BABCOCK NP Attn: Accounting,[address] [facility], [place], [address], [place] 09/06/2023 14:14:25 09/17/2023 text/html Eloisa sarabia 63yo with HX of asthma and HTN consenting to phone visit to review abnormal lab results. Patient came into office on 09/06/2023 for annual exam.Mammogram was done and results showed small right breast mass. She needs additional imagingAlso she did a cologuard and it came back positive. Needs referral to GIPap smear 09/06/2023 NILM HRHPV Negvaginal swab was negative for any BV or yeast. LENI BABCOCK NP Attn: Accounting,[address] [facility], [place], [address], [facility] - [facility] 09/17/2023 13:13:39 09/27/2023 text/html Eloisa sarabia 63yo with HX of asthma and HTN consenting to phone visit to review abnormal lab results. Patient came into office on 09/06/2023 for annual exam.Mammogram was done and results showed small right breast mass. She needed additional imaging.Additional imaging was done on 09/24/2023 and it showed at 8:00 in the right breast, 4cm from the nipple a [id number] hypoechoic mass with posterior shadowing and irregular borders. Lesion is taller than wider. Suspicious for malignancy. Biopsy is needed. LENI BABCOCK NP Attn: Accounting,[address] [facility], [place], [address], [place] 09/27/2023 12:45:40 OBGyn Episode Ob Episode Information Episode Created Date Number of Fetuses Patient Bloodtype Patient rh Status Prepregnancy Weight lbs Domestic Partner Domestic Partner Phone Father Name Quarter Lining Smoother Status 09/06/19 24 1 CLOSED Fetus Data First Name Last Name Admitted to NICU Weight (g) Sex Living Outcome Pediatric Complications Fetus ID Race Codes Race Delivery Type F Full Term [id number] Nishant Calculation Initial Nishant Date Initial Exam Date Initial Exam Provider Initial Ultrasound Date Last Menstrual Period Date Ultra Sound Weeks Gestation 0 Eighteen To Twenty Week Nishant Update Ultra Sound Date Fundal Height At Umbil Quickening Date Ultra Sound Latest Weeks Gestation Final Nishant Confirmed By Final Nishant Confirmed Date Final Nishant Date Ultra Sound Latest Days Gestation 0 0 Menstrual History Last Menstrual Date Menses Monthly On Bcp Conception Prior Menses Frequency Hcg Plus Date Menarche Onset Age Delivery Information Delivery Date Delivery Type Labor Anesthesia Weeks Gestation Incision Type Labor Labor Length Hrs Delivered By Post Complications Tubal Sterilization Discharge Date Comments 2 Discharge Information Feeding Method Contraceptive Method Maternal HG B and HCT Levels Ob Episode Information Episode Created Date Number of Fetuses Patient Bloodtype Patient rh Status Prepregnancy Weight lbs Domestic Partner Domestic Partner Phone Father Name Quarter Lining Smoother Status 09/06/19 24 1 CLOSED Fetus Data First Name Last Name Admitted to NICU Weight (g) Sex Living Outcome Pediatric Complications Fetus ID Race Codes Race Delivery Type F Full Term [id number] Nishant Calculation Initial Nishant Date Initial Exam Date Initial Exam Provider Initial Ultrasound Date Last Menstrual Period Date Ultra Sound Weeks Gestation 0 Eighteen To Twenty Week Nishant Update Ultra Sound Date Fundal Height At Umbil Quickening Date Ultra Sound Latest Weeks Gestation Final Nishant Confirmed By Final Nishant Confirmed Date Final Nishant Date Ultra Sound Latest Days Gestation 0 0 Menstrual History Last Menstrual Date Menses Monthly On Bcp Conception Prior Menses Frequency Hcg Plus Date Menarche Onset Age Delivery Information Delivery Date Delivery Type Labor Anesthesia Weeks Gestation Incision Type Labor Labor Length Hrs Delivered By Post Complications Tubal Sterilization Discharge Date Comments 3 Discharge Information Feeding Method Contraceptive Method Maternal HG B and HCT Levels
--- OUTSIDE RECORDS SUMMARY | 2024-08-25 11:10 | XMS_ITS ---
Author Organization [facility] [address] [place] [id number] Care Team Providers Care Metal Flow Coordinator Name Role Phone Dion Cook MD Primary Care Provider [phone] Deniz Bray MD Unavailable [phone] Dejan Mendez MD Unavailable [phone] Ino Jimenez MD PhD Unavailable Active Problems Problem Noted Date Diagnosed Date Personal history of radiation therapy 03/08/2024 Malignant neoplasm of lower- outer quadrant of right breast of female, estrogen receptor positive 10/28/2023 Cancer Staging:Clinical stage from 10/28/2023:Stage IA(cT1a, cN0, cM0, G1, ER+, NY+, HER2-) - Signed by Dejan Mendez MD on 10/28/2023 Pathologic stage from 01/10/2024:Stage IA(pT1b, pN0(sn), cM0, G1, ER+, NY+, HER2-) - Signed by Dejan Mendez MD on 01/10/2024 Current Treatment and Therapy Plans No current plan information found. Past Treatment and Therapy Plans No past plan information found. Radiation Treatments * Course [id number]/24/2024 - 01/28/2024 Treatment Period Energy Fraction Dose Fractions Total Dose Plans Planned [id number] 01/24/2024 - 01/28/2024 600 5 / 3,000 Reference Points Delivered [id number] 01/24/2024 - 01/28/2024 3,000
[2024-08-25 11:48] LABS: Alanine Aminotransferase 15 U/L (6-35); Albumin Level 3.9 g/dL (3.5-5.1); Alkaline Phosphatase 103 U/L (38-126); Anion Gap 3 mmol/L (4-12); Aspartate Amino Transferase 26 U/L (14-36); Bilirubin,Total 1.4 mg/dL (0.2-1.3); Blood Urea Nitrogen 15 mg/dL (7-17); CRP < 0.5 mg/dL (<1.0); Calcium 9.2 mg/dL (8.4-10.2); Carbon Dioxide 28 mmol/L (22-30); Chloride 108 mmol/L (98-107); Cholesterol 159 mg/dL (0-200); Estimated Glomerular Filt Rate > 60; Glucose 88 mg/dL (65-110); HDL Direct 43 mg/dL; LDL Cholesterol Calculated 98 mg/dL (<130); Osmolality Calculated 287 mOsm/kg (285-295); Potassium 4.6 mmol/L (3.4-5.0); Sodium 139 mmol/L (137-145); Total Protein 7.4 g/dL (6.3-8.2); Triglycerides 92 mg/dL (<150)
== END 2024-08-25 10:58 | disposition home or self-care (01) ==
LOC: CHSLAB 10:59
PROVIDERS: PCP Internal Medicine; Visit Provider Internal Medicine
DX: Z00.00 Encounter for general adult medical examination without abnormal findings (principal); I10 Essential (primary) hypertension; G25.89 Other specified extrapyramidal and movement disorders
CPT/HCPCS: 36415; 80053; 80061; 82728; 84443; 85025; 86140